=== PATIENT | female | born 1945 | race Caucasian/White ===

== ENCOUNTER → 2016-10-03 | Outpatient (CLI) | payer MEDICARE ==
[~2016-10-03] MED LIST: ACHD5005 PO; BILB80CA PO; CELE200C PO; CRAN200C PO; FLUO40CA12 PO; LISI10TA PO; MAGN250T35 PO; METO-351 PO; MULT-608 PO; OMEG-109 PO; RED600CA2 PO; RIVA20TA PO; SPIR25TA3 PO; TRAM50TA2 PO; UBID300C PO; VIT D3; VITA-189 PO; WRF5T PO
--- OUTSIDE RECORDS SUMMARY | 2016-10-03 10:52 | XMS REPORT | Continuity of Care Document ---
Author Author [facility] Organization [facility] Address Unknown Phone Unavailable Care Team Providers Care Certified Genetic Counselor Name Role Phone FANTA PATEL DO PCP Insurance Providers Payer Name Policy Number Subscriber Name Relationship Advantra Callao [id number] Kusum Sibley 18 Self / Same As Patient Advance Directives Directive Response Recorded Date/Time Advance Directives No 09/01/15 3:16pm Health Care Power of Baseball Glove Shaper No 09/01/15 3:16pm Organ Donor No 09/01/15 3:16pm Problems No problem information available. Medications Current Home Medications Medication Dose Units Route Directions Days/Qty Instructions Start Date Spironolactone 25 Mg 25 Mg Oral Daily 04/14/11 [Vit D3 ] 1,000 Units 07/14/15 Ubidecarenone 300 Mg 300 Mg Oral 07/14/15 Vitamin B Complex 1 Each 1 Each Oral 07/14/15 [place]-3 Fatty Acids/Fish Oil 1 Each 1 Each Oral 07/14/15 Red Yeast Rice 600 Mg 1,200 Mg Oral Daily 07/14/15 Bilberry Fruit Extract 80 Mg 80 Mg Oral Daily 07/14/15 Cranberry Extract 200 Mg 200 Mg Oral Daily 07/14/15 Magnesium Oxide 250 Mg 250 Mg Oral Daily 07/14/15 Metoprolol Succinate 25 Mg 25 Mg Oral Daily 07/14/15 Celecoxib 200 Mg 200 Mg Oral Daily 07/14/15 Fluoxetine Hcl 40 Mg 40 Mg Oral Daily 10/20/15 Tramadol Hcl 50 Mg 50 Mg Oral Daily 07/14/15 Rivaroxaban 20 Mg 20 Mg Oral Daily 07/14/15 Spironolactone 25 Mg 25 Mg Oral Daily 07/14/15 Past Home Medications Medication Directions Ordered Status Lisinopril (Zestril) 10 Mg Tablet, 1 Each Oral Daily 04/14/11 Discontinued Multivitamins 1 Tab Tablet, 1 Tab Oral Daily 04/14/11 Discontinued Warfarin Sodium 5 Mg Tab, 5 Mg Oral Daily@18 04/19/11 Discontinued Acetaminophen/Hydrocodone Bitart 1 Each Tablet, 1 - 2 Each Oral Every 6 Hours as needed 11/16/12 Discontinued Social History Social History Problem Response Recorded Date/Time Alcohol Use Denies Use 11/16/2012 4:06am Recreational Drug Use No 11/16/2012 4:06am Sexually Transmitted Disease No 11/16/2012 4:06am HIV/AIDS No 11/16/2012 4:06am Do you dip or chew tobacco? No 09/01/2015 3:15pm Sexually Transmitted Disease No 11/16/2012 4:06am Hospital Discharge Instructions No hospital discharge instructions. Plan of Care Prescriptions See Medication Section Functional Status No functional status results. Allergies, Adverse Reactions, Alerts Allergen Type Severity Reaction Status Last Updated tetracycline ([id number]) Allergy Unknown Active 07/14/15 Clindamycin Allergy Unknown Active 07/14/15 Immunizations No immunization records. Vital Signs No known vital signs results. Results No known relevant diagnostic tests, laboratory data and/or discharge summary. Procedures No known history of procedures. Encounters Encounter Location Arrival/Admit Date Discharge/Depart Date Attending Provider Discharged Recurring [facility] 04/27/16 11:51am 11:59pm QUYNH LANDEROS FACP, MD FACC
--- NOTE | 2016-10-03 16:11 | Diagnostic Imaging Report ---
PROCEDURE: US Thyroid. TECHNIQUE: Multiple real-time grayscale images were obtained of the thyroid in various projections. INDICATION: Bilateral thyroid nodule seen on outside carotid ultrasound. COMPARISON: No images are available for comparison. FINDINGS: Right thyroid lobe: The right thyroid lobe measures 5.1 x 1.8 x 1.5 cm It demonstrates a background of homogeneous echogenicity. There are multiple subcentimeter anechoic cysts present throughout the right thyroid lobe. In the upper pole of the right thyroid, there is a mixed solid and cystic nodule measuring 1.1 x 0.9 x 0.9 cm. Isthmus: The thyroid isthmus measures 0.3 cm in thickness and has a single anechoic subcentimeter cyst present. Left thyroid lobe: The left thyroid lobe measures 5.0 x 1.7 x 2.0 cm. There are numerous well-circumscribed subcentimeter cysts within the left thyroid lobe. There are additionally two dominant nodules within the upper pole of the left thyroid. The largest nodule measures 2.2 x 1.3 x 1.7 cm and is heterogeneously hypoechoic with solid components and a few intrinsic cystic foci. The other nodule is well-circumscribed and homogeneously hypoechoic measuring 1.5 x 0.8 x 1.1 cm. Extrinsic to the thyroid and located posterior to the inferior pole, there is a circumscribed markedly hypoechoic nodule measuring 1.1 x 1.1 x 1.3 cm. IMPRESSION: 1. Numerous bilateral thyroid cysts. There are additional mixed solid and cystic nodules in the upper pole of both thyroids. Dominant nodule on the left measures up to 2.2 cm. Given size greater than 2 cm, image guided FNA of this nodule is suggested. 2. There is a round hypoechoic nodule located posterior and extrinsic to the inferior left thyroid lobe. This may represent parathyroid adenoma. Correlation with serum calcium levels is recommended. If hypercalcemia is present, nuclear medicine parathyroid scan could be performed. Dictated by: Dictated on workstation # [id number]
== END ==
LOC: RAD 10:49
PROVIDERS: ATTEND Family Medicine
DX: E04.2 Nontoxic multinodular goiter (principal)
CPT/HCPCS: 76536

== ENCOUNTER → 2016-10-13 | Outpatient (CLI) | payer MEDICARE ==
[~2016-10-13] VITALS: Ht 165.1 cm; Wt 86.2 kg
[~2016-10-13] MED LIST changes: +LIDOCAINE 1% INJ 20 ML (XYLOCAINE) VIAL ONE
--- OUTSIDE RECORDS SUMMARY | 2016-10-13 12:45 | XMS REPORT | Continuity of Care Document ---
Author Author [facility] Organization [facility] Address Unknown Phone Unavailable Care Team Providers Care Bicycle Ii Assembler Name Role Phone FANTA PATEL DO PCP Insurance Providers Payer Name Policy Number Subscriber Name Relationship Advantra Uvalda [id number] Kusum Sibley 18 Self / Same As Patient Advance Directives Directive Response Recorded Date/Time Advance Directives No 09/01/15 3:16pm Health Care Power of Sheet Metal Worker Maintenance No 09/01/15 3:16pm Organ Donor No 09/01/15 3:16pm Problems No problem information available. Medications Current Home Medications Medication Dose Units Route Directions Days/Qty Instructions Start Date Spironolactone 25 Mg 25 Mg Oral Daily 04/14/11 [Vit D3 ] 1,000 Units 07/14/15 Ubidecarenone 300 Mg 300 Mg Oral 07/14/15 Vitamin B Complex 1 Each 1 Each Oral 07/14/15 [place]-3 Fatty Acids/Fish Oil 1 Each 1 Each [...] Type Severity Reaction Status Last Updated tetracycline ([id number]) Allergy Unknown Active 07/14/15 Clindamycin Allergy Unknown Active 07/14/15 Immunizations No immunization records. Vital Signs No known vital signs results. Results No known relevant diagnostic tests, laboratory data and/or discharge summary. Procedures No known history of procedures. Encounters Encounter Location Arrival/Admit Date Discharge/Depart Date Attending Provider Discharged Recurring [facility] 04/27/16 11:51am 11:59pm QUYNH LANDEROS FACP, MD FACC
--- NOTE | 2016-10-13 16:10 | Diagnostic Imaging Report ---
EXAMINATION: US-guided core biopsy-thyroid. INDICATION: Left thyroid nodule. Current history and physical and other medical records are reviewed prior to the procedure. CONSENT: Informed consent was obtained from the patient. The risks, benefits, potential complications and alternatives were reviewed and all questions answered to the patient's satisfaction. The patient's vital signs, cardiac rhythm, and pulse oximetry with observed throughout the procedure by qualified nursing personnel. Sedation/medications: none. FINDINGS: Left thyroid solid and cystic nodule about 2.2 CM in size. PROCEDURE: After maximal sterile barrier technique preparation and draping, 1% lidocaine was utilized for local anesthesia. With the patient in supine position, and via anterior approach, a 19-gauge guide needle is introduced into the left thyroid nodule under live ultrasound guidance. After confirming adequate positioning with saved ultrasound images, multiple 20 gauge core biopsy specimens were obtained. The patient tolerated the procedure well with no immediate complications. IMPRESSION: Successful US-guided core biopsy of left thyroid nodule. Dictated by: Dictated on workstation # [id number]
== END ==
LOC: RAD 12:42
PROVIDERS: ATTEND Family Medicine
DX: E04.1 Nontoxic single thyroid nodule (principal)
CPT/HCPCS: 76942

== ENCOUNTER 2017-02-07 13:24 | Outpatient (RCR) | payer MEDICARE ==
[~2017-02-07 13:24] MED LIST changes: -LIDOCAINE 1% INJ 20 ML (XYLOCAINE) VIAL ONE
== END 2017-02-22 08:53 | disposition home or self-care (01) ==
PROVIDERS: ATTEND Neurological Surgery
DX: M54.16 Radiculopathy, lumbar region (principal)

== ENCOUNTER → 2017-10-13 | Outpatient (CLI) | payer MEDICARE | LOC: CARD 09:33 | PROVIDERS: ATTEND Nurse Practitioner Family | DX: I35.0 Nonrheumatic aortic (valve) stenosis (principal); Z95.2 Presence of prosthetic heart valve; I25.10 Atherosclerotic heart disease of native coronary artery without angina pectoris; I65.23 Occlusion and stenosis of bilateral carotid arteries | CPT/HCPCS: 93306 ==

== ENCOUNTER → 2019-03-25 | Outpatient (CLI) | payer MEDICARE ==
[~2019-03-25] MED LIST changes: -RIVA20TA PO; +RIVA20TA2 PO; +SPIR25TA5 PO
--- NOTE | 2019-03-25 10:16 | Diagnostic Imaging Report ---
PROCEDURE: US Thyroid. TECHNIQUE: Multiple real-time grayscale images were obtained of the thyroid in various projections. INDICATION: Thyroid nodules. Comparison is made with prior examination from 10/03/2016. FINDINGS: Right lobe of the thyroid measures 5.2 x 1.7 x 2.5 cm. There is a hypoechoic nodule measuring 1.4 x 1.1 cm. There is a heterogeneous nodule measuring 1.1 cm. The left lobe of the thyroid measures 4.7 x 1.8 x 2.1 cm. There is an isoechoic nodule on the left measuring 2 x 1 cm. There is a hypoechoic nodule measuring 1.2 x 1.1 cm. IMPRESSION: Relatively stable bilateral thyroid nodules, likely multinodular goiter. The 2 cm nodule on the left has been previously biopsied. Dictated by: Dictated on workstation # [id number]
== END ==
LOC: RAD 08:07
PROVIDERS: ATTEND Family Medicine
DX: E04.2 Nontoxic multinodular goiter (principal)
CPT/HCPCS: 76536

== ENCOUNTER → 2021-06-16 | Outpatient (CLI) | payer MEDICARE ==
[~2021-06-16] MED LIST changes: -TRAM50TA2 PO; +TRM50T PO
== END ==
LOC: CARD 10:11
PROVIDERS: ATTEND Nurse Practitioner Family
DX: I07.1 Rheumatic tricuspid insufficiency (principal); Z98.890 Other specified postprocedural states; Z95.2 Presence of prosthetic heart valve
CPT/HCPCS: 93306

== ENCOUNTER → 2022-04-20 | Outpatient (CLI) | payer MEDICARE ==
[~2022-04-20] MED LIST changes: +RT-ALBUTEROL SULF 2.5 MG/3 ML PRE-MIX VIAL INH ONE
== END ==
LOC: RT 10:40
PROVIDERS: ATTEND Family Medicine
DX: R06.00 Dyspnea, unspecified (principal); R05.9 Cough, unspecified
CPT/HCPCS: 94060; 94726; 94729

== ENCOUNTER 2022-04-26 10:37 | Emergency (ER) | payer MEDICARE ==
[~2022-04-26 10:37] MED LIST changes: -RT-ALBUTEROL SULF 2.5 MG/3 ML PRE-MIX VIAL INH ONE
--- NOTE | 2022-04-26 11:13 | ED Cough/URI ---
General Chief Complaint: COVID19 Suspect/Confirmed Stated Complaint: FEVER - COUGH - BODY ACHES - CONGESTION Source: patient Exam Limitations: no limitations History of Present Illness Date Seen by Provider: Apr 26, 2022 Time Seen by Provider: 11:10 Initial Comments Patient is a 76-year-old female with aortic stenosis who presents ED with flulike symptoms. Symptoms started yesterday. She states she had a fever as high as 101.7. She took Tylenol. She states that she is sore all over with body aches and a cough. Initially states she was producing sputum and then states its more of a dry cough with scratchy throat. Denies of any nausea, vomiting, diarrhea, chest pain, abdominal pain. Patient is slow to respond to questions. Patient's oxygen level was around 93 to 94%. She states she had a recent pulmonary function test prescribed by her primary care physician. No history of COPD, asthma or heart disease that she knows of Allergies and Home Medications Allergies Coded Allergies: clindamycin (Verified Allergy, Unknown, 07/14/15) tetracycline (Verified Allergy, Unknown, 07/14/15) Patient Home Medication List Home Medication List Reviewed: Yes Bilberry Fruit Extract (Bilberry) 80 Mg Capsule, 80 MG PO DAILY, (Reported) Entered as Reported by: ODILON YBARRA on 07/14/15751 Celecoxib (Celebrex) 200 Mg Capsule, 200 MG PO DAILY, (Reported) Entered as Reported by: ODILON YBARRA on 07/14/15751 Cranberry Extract (Cranberry) 200 Mg Capsule, 200 MG PO DAILY, (Reported) Entered as Reported by: ODILON YBARRA on 07/14/15751 Fluoxetine HCl (Prozac) 40 Mg Capsule, 40 MG PO DAILY, (Reported) Entered as Reported by: ODILON YBARRA on 07/14/15751 Magnesium Oxide (Magnesium Oxide) 250 Mg Tablet, 250 MG PO DAILY, (Reported) Entered as Reported by: ODILON YBARRA on 07/14/15751 Metoprolol Succinate (Toprol Xl) 25 Mg Tab.er.24h, 25 MG PO DAILY, (Reported) Entered as Reported by: ODILON YBARRA on 07/14/15751 Nirmatrelvir/Ritonavir (Paxlovid 150-100 mg Pack (Eua)) 150 Mg-100 Mg Tablet, 1 EACH PO BID Prescribed by: TEOFILO LUNA on 04/26/22 1330 [place]-3 Fatty Acids/Fish Oil (Fish Oil 1,200 mg Softgel) 1 Each Capsule, 1 EACH PO, (Reported) Entered as Reported by: ODILON YBARRA on 07/14/15751 Red Yeast Rice (Red Yeast Rice) 600 Mg Capsule, 1,200 MG PO DAILY, (Reported) Entered as Reported by: ODILON YBARRA on 07/14/15751 Rivaroxaban (Xarelto Tablet) 20 Mg Tablet, 20 MG PO DAILY, (Reported) Entered as Reported by: ODILON YBARRA on 07/14/15751 Spironolactone (Spironolactone) 25 Mg Tablet, 25 MG PO DAILY, (Reported) Entered as Reported by: RUIZ BROWN on 04/14/11 1447 Spironolactone (Spironolactone) 25 Mg Tablet, 25 MG PO DAILY, (Reported) Entered as Reported by: ODILON YBARRA on 07/14/15751 Tramadol HCl (Tramadol HCl) 50 Mg Tablet, 50 MG PO DAILY, (Reported) Entered as Reported by: ODILON YBARRA on 07/14/15751 Ubidecarenone (Co Q-10) 300 Mg Capsule, 300 MG PO, (Reported) Entered as Reported by: ODILON YBARRA on 07/14/15751 Vitamin B Complex (B Complex) 1 Each Tablet, 1 EACH PO, (Reported) Entered as Reported by: ODILON YBARRA on 07/14/15751 [Vit D3 ] , 1,000 UNITS, (Reported) Entered as Reported by: ODILON YBARRA on 07/14/15751 Review of Systems Review of Systems Constitutional: chills; No diaphoresis; malaise, weakness EENTM: No ear pain, No blurred vision, No double vision Respiratory: cough, short of breath Cardiovascular: No chest pain Gastrointestinal: No abdominal pain, No diarrhea, No nausea, No vomiting Genitourinary: No decreased output, No discharge Musculoskeletal: No back pain, No joint pain Skin: No change in color, No change in hair/nails All Other Systems Reviewed Negative Unless Noted: Yes Past Xrliawe-Acwbnd-Iludfu Hx Immunizations Up To Date Tetanus Booster (TDap): Unknown Past Medical History Reproductive Disorders: No Sexually Transmitted Disease: No HIV/AIDS: No Adverse Reaction/Blood Tranf: No Physical Exam Vital Signs - First Documented 04/26/22 10:57 Temp 38.7 Pulse 85 Resp 18 B/P (MAP) 148/59 (88) Capillary Refill : Height: 5'5.00" Weight: 190lbs. 0.0oz. 86.493150ao; 31.6 BMI Method:Estimated General Appearance: WD/WN, no apparent distress Eyes: Bilateral Eye Normal Inspection, Bilateral Eye PERRL, Bilateral Eye EOMI HEENT: PERRL/EOMI, normal ENT inspection, TMs normal, pharynx normal Neck: non-tender, full range of motion, supple, normal inspection Respiratory: chest non-tender, lungs clear, normal breath sounds, no respiratory distress, no accessory muscle use Cardiovascular: regular rate, rhythm, no edema, no gallop, no JVD Gastrointestinal: normal bowel sounds, non tender, soft Extremities: normal range of motion, non-tender, normal inspection, no pedal edema, no calf tenderness Neurologic/Psychiatric: packaging operator II-XII nml as tested, no motor/sensory deficits, alert, normal mood/affect, oriented x 3 Skin: normal color, warm/dry Progress/Results/Core Measures Suspected Sepsis SIRS Temperature: Pulse: Respiratory Rate: Laboratory Tests 04/26/22 11:41: White Blood Count 8.2 Blood Pressure / Mean: Laboratory Tests 04/26/22 11:41: Creatinine 0.85, Platelet Count 162, Total Bilirubin 0.9 Results/Orders Lab Results Laboratory Tests Test 04/26/22 11:00 04/26/22 11:41 Range/Units Influenza Type A (RT-PCR) Not Detected Not Detecte Influenza Type B (RT-PCR) Not Detected Not Detecte SARS-CoV-2 RNA (RT-PCR) Detected H Not Detecte White Blood Count 8.2 4.3-11.0 10^3/uL Red Blood Count 4.73 3.80-5.11 10^6/uL Hemoglobin 14.6 11.5-16.0 g/dL Hematocrit 45 35-52 % Mean Corpuscular Volume 94 80-99 fL Mean Corpuscular Hemoglobin 31 25-34 pg Mean Corpuscular Hemoglobin Concent 33 32-36 g/dL Red Cell Distribution Width 12.6 10.0-14.5 % Platelet Count 162 130-400 10^3/uL Mean Platelet Volume 11.4 9.0-12.2 fL Immature Granulocyte % (Auto) 0 % Neutrophils (%) (Auto) 78 H 42-75 % Lymphocytes (%) (Auto) 8 L 12-44 % Monocytes (%) (Auto) 12 0-12 % Eosinophils (%) (Auto) 1 0-10 % Basophils (%) (Auto) 0 0-10 % Neutrophils # (Auto) 6.4 1.8-7.8 10^3/uL Lymphocytes # (Auto) 0.7 L 1.0-4.0 10^3/uL Monocytes # (Auto) 1.0 0.0-1.0 10^3/uL Eosinophils # (Auto) 0.1 0.0-0.3 10^3/uL Basophils # (Auto) 0.0 0.0-0.1 10^3/uL Immature Granulocyte # (Auto) 0.0 0.0-0.1 10^3/uL D-Dimer 0.92 H 0.00-0.49 UG/ML Urine Color YELLOW Urine Clarity CLEAR Urine pH 7.5 5-9 Urine Specific [place] 1.015 L 1.016-1.022 Urine Protein NEGATIVE NEGATIVE Urine Glucose (UA) NEGATIVE NEGATIVE Urine Ketones TRACE H NEGATIVE Urine Nitrite NEGATIVE NEGATIVE Urine Bilirubin NEGATIVE NEGATIVE Urine Urobilinogen 0.2 < = 1.0 MG/DL Urine Leukocyte Esterase NEGATIVE NEGATIVE Urine RBC (Auto) NEGATIVE NEGATIVE Urine RBC NONE /HPF Urine WBC RARE /HPF Urine Squamous Epithelial Cells >50 H /HPF Urine Crystals NONE /LPF Urine Bacteria TRACE /HPF Urine Casts NONE /LPF Urine Mucus SMALL H /LPF Urine Culture Indicated NO Sodium Level 139 135-145 MMOL/L Potassium Level 4.2 3.6-5.0 MMOL/L Chloride Level 105 98-107 MMOL/L Carbon Dioxide Level 24 21-32 MMOL/L Anion Gap 10 5-14 MMOL/L Blood Urea Nitrogen 12 7-18 MG/DL Creatinine 0.85 0.60-1.30 MG/DL Estimat Glomerular Filtration Rate 72 BUN/Creatinine Ratio 14 Glucose Level 104 70-105 MG/DL Calcium Level 9.2 8.5-10.1 MG/DL Corrected Calcium 9.3 8.5-10.1 MG/DL Total Bilirubin 0.9 0.1-1.0 MG/DL Aspartate Amino Transf (AST/SGOT) 23 5-34 U/L Alanine Aminotransferase (ALT/SGPT) 20 0-55 U/L Alkaline Phosphatase 79 40-136 U/L Troponin I < 0.028 <0.028 NG/ML B-Type Natriuretic Peptide 146.9 H <100.0 PG/ML Total Protein 6.5 6.4-8.2 GM/DL Albumin 3.9 3.2-4.5 GM/DL My Orders Orders - HUMPHREY SEBASTIAN Covid 19 Inhouse Test (04/26/22 10:57) Influenza A And B By Pcr (04/26/22 10:57) Cbc With Automated Diff (04/26/22 11:13) Comprehensive Metabolic Panel (04/26/22 11:13) Urinalysis (04/26/22 11:13) Chest 1 View, Ap/Pa Only (04/26/22 11:13) Iv/Invasive Line Insertion .IV start (04/26/22 11:13) Acetaminophen Tablet (Tylenol Tablet) (04/26/22 11:15) Troponin I [place] (04/26/22 11:13) Bnp [place] (04/26/22 11:13) Ekg Tracing (04/26/22 11:13) Fibrin Degradation Products (04/26/22 11:40) Ct Angio Chest W (04/26/22 12:30) Medications Given in ED Current Medications Medications Dose Ordered Sig/Yeison Route Start Time Stop Time Status Last Admin Dose Admin Acetaminophen 1,000 mg ONCE ONCE PO 04/26/22 11:15 04/26/22 11:16 DC 04/26/22 11:23 1,000 MG Iohexol 75 ml ONCE ONCE IV 04/26/22 13:15 04/26/22 13:18 DC 04/26/22 13:12 75 ML Sodium Chloride 100 ml ONCE ONCE IV 04/26/22 13:15 04/26/22 13:18 DC 04/26/22 13:12 100 ML Vital Signs/I&O 04/26/22 04/26/22 10:57 13:46 Temp 38.7 38.7 Pulse 85 84 Resp 18 18 B/P (MAP) 148/59 (88) 148/59 Capillary Refill : ECG Comment Sinus rhythm, low QRS voltage in pericardial leads, incomplete right bundle branch block, 71 bpm, QRS duration 99 MS, QTc 366 MS Departure Communication (PCP) Patient is a 76-year-old female who per ED with flulike symptoms that started yesterday. Dry cough, headache body aches soreness. Patient oxygen level 93 to 94% on room air. Denies history of COPD or known coronary artery disease. Had a outpatient echo in the past with mild aortic stenosis. She is currently on Eliquis with a history of blood disorder and PE. She had a recent pulmonary function test that was concern for PE versus severe anemia. This was performed April 20 here at our hospital. She denies of any current statins. EKG showed sinus rhythm at 71 bpm. No respiratory distress. Chest x-ray was unremarkable. Lab work was otherwise unremarkable with a slight elevated D-dimer. CT angio of the chest was negative for PE. Patient is a candidate for antiviral. Discussed PAxolvid and potential side effects. She agrees to move forward. Discussed decreasing her Eliquis and half twice a day 2.5 mg because of her strong history of PE. She is not currently on a statin. No contradictions with her blood pressure medication. Discussed monitor oxygen level at home with pulse ox. If any worsening symptoms such as shortness of breath, chest pain to return back to ED for further evaluation. Impression Primary Impression: COVID-19 Disposition: 01 HOME, SELF-CARE Condition: Stable Departure-Patient Inst. Decision time for Depature: 13:29 Referrals: FANTA PATEL DO (PCP/Family) Primary Care Physician Patient Instructions: COVID-19 (DC) Scripts Nirmatrelvir/Ritonavir (Paxlovid 150-100 mg Pack (Eua)) 150 Mg-100 Mg Tablet 1 EACH PO BID for 5 Days, #10 TAB Prov: HUMPHREY SEBASTIAN 04/26/22 HUMPHREY SEBASTIAN Apr 26, 2022 11:13
[2022-04-26] MEDS ORDERED: ACETAMINOPHEN 500 MG TAB (TYLENOL) PO ONE (11:15)
[2022-04-26 11:53] LABS: BASOPHILS % (AUTO) 0 % (0-10); EOSINOPHILS # (AUTO) 0.1 10^3/uL (0.0-0.3); EOSINOPHILS % (AUTO) 1 % (0-10); HEMATOCRIT 45 % (35-52); HEMOGLOBIN 14.6 g/dL (11.5-16.0); LYMPHOCYTES # (AUTO) 0.7 10^3/uL (1.0-4.0); LYMPHOCYTES % (AUTO) 8 % (12-44); MEAN CORPUSCULAR HEMOGLOBIN 31 pg (25-34); MEAN CORPUSCULAR HGB CONC 33 g/dL (32-36); MEAN CORPUSCULAR VOLUME 94 fL (80-99); MEAN PLATELET VOLUME 11.4 fL (9.0-12.2); MONOCYTES % (AUTO) 12 % (0-12); NEUTROPHILS # (AUTO) 6.4 10^3/uL (1.8-7.8); NEUTROPHILS % (AUTO) 78 % (42-75); PLATELET COUNT 162 10^3/uL (130-400); WHITE BLOOD COUNT 8.2 10^3/uL (4.3-11.0)
--- NOTE | 2022-04-26 12:01 | Diagnostic Imaging Report ---
Indication: Clinical suspicion for COVID pneumonia. Findings: No focal consolidation is found. Lung evaluation limited by body habitus. No acute infiltrate apparent. There is no effusion, pneumothorax or failure pattern. Impression: No acute abnormality radiographically apparent. Dictated by: Dictated on workstation # [id number]
[2022-04-26 12:12] LABS: COLOR,URINE YELLOW
[2022-04-26 12:13] LABS: BACTERIA,URINE TRACE /HPF; BILIRUBIN,URINE NEGATIVE (NEGATIVE); CLARITY,URINE CLEAR; GLUCOSE, URINE (UA) NEGATIVE (NEGATIVE); KETONES,URINE TRACE (NEGATIVE); LEUKOCYTE ESTERASE ,URINE NEGATIVE (NEGATIVE); NITRITE,URINE NEGATIVE (NEGATIVE); PH,URINE 7.5 (5-9); PROTEIN,URINE NEGATIVE (NEGATIVE); WBC,URINE RARE /HPF
[2022-04-26 12:14] LABS: SQUAMOUS EPITHELIAL CELL,UR >50 /HPF
[2022-04-26 12:23] LABS: ALANINE AMINOTRANSFERASE 20 U/L (0-55); ALBUMIN 3.9 GM/DL (3.2-4.5); ALKALINE PHOSPHATASE 79 U/L (40-136); BILIRUBIN,TOTAL 0.9 MG/DL (0.1-1.0); BUN/CREATININE RATIO 14; CALCIUM 9.2 MG/DL (8.5-10.1); CARBON DIOXIDE 24 MMOL/L (21-32); CHLORIDE 105 MMOL/L (98-107); CREATININE SERUM 0.85 MG/DL (0.60-1.30); GFR ESTIMATED 72; GLUCOSE 104 MG/DL (70-105); POTASSIUM 4.2 MMOL/L (3.6-5.0); SODIUM 139 MMOL/L (135-145); TOTAL PROTEIN 6.5 GM/DL (6.4-8.2)
[2022-04-26] MEDS ORDERED: NS 100 ML (IVPB) BAG IV ONE (13:15)
[2022-04-26] MEDS ORDERED: IOHEXOL 350 MG/ML 100 ML (OMNIPAQUE 350) VIAL IV ONE (13:15)
[2022-04-26] MEDS ORDERED: HOLD METFORMIN - RECEIVED CONTRAST 20 ML VIAL IV SCH (13:15)
--- NOTE | 2022-04-26 13:21 | Diagnostic Imaging Report ---
EXAMINATION: CT angiography of the chest. TECHNIQUE: Contrast enhanced thin section helical images were obtained through the chest with intravenous contrast timed for the optimal opacification of the arterial structures per CTA protocol. Post-processing, reconstructions and interpretation of angiographic images of the vessels was performed. 3D MIP reconstructions were performed and reviewed. All CT scans use one or more of the following dose optimizing techniques: Automated exposure control, MA and/or KvP adjustment based on a patient size and exam type, or iterative reconstruction. HISTORY: Dyspnea, chest tightness. COMPARISON: 09/22/2015. FINDINGS: Vascular: No filling defects within the pulmonary arteries. Thoracic aorta is normal in caliber. Calcification of the aorta and coronary vessels. Thyroid: The thyroid is normal. Mediastinum: Heart size is normal without significant pericardial effusion. No suspicious lymphadenopathy. Lungs and airways: The lungs are clear without consolidation, pleural effusion, or pneumothorax. No suspicious pulmonary lesion. There is atelectasis within the dependent lungs. The airways are normal. Upper abdomen: Gallbladder is surgically absent. Musculoskeletal: Degenerative changes of the spine without suspicious osseous lesion or compression fracture. Surgical changes from median sternotomy. IMPRESSION: 1. No findings of pulmonary embolus or other acute abnormality in the chest. Dictated by: Dictated on workstation # [id number]
[2022-04-26] MEDS ORDERED: NIRM1TAB5 PO (13:30)
[2022-04-26 13:46] VITALS: BP 148/59
== END 2022-04-26 13:56 | disposition home or self-care (01) ==
LOC: EDUNIT# 10:37 → ER 10:39
DX: U07.1 COVID-19 (principal); I45.10 Unspecified right bundle-branch block; Z86.2 Personal history of diseases of the blood and blood-forming organs and certain disorders involving the immune mechanism; Z86.711 Personal history of pulmonary embolism; Z79.01 Long term (current) use of anticoagulants
CPT/HCPCS: 36415; 71045; 71275; 80053; 81000; 83880; 84484; 85025; 85379; 87636; 93005

== ENCOUNTER → 2022-05-12 | Outpatient (CLI) | payer MEDICARE ==
[~2022-05-12] MED LIST changes: +NIRM1TAB5 PO
--- NOTE | 2022-05-12 17:52 | Diagnostic Imaging Report ---
CT Chest w/o contrast. TECHNIQUE: Multiple contiguous axial images were obtained through the chest without the use of intravenous contrast. All CT scans use one or more of the following dose optimizing techniques: automated exposure control, MA and/or KvP adjustment based on patient size and exam type or iterative reconstruction. INDICATION: Shortness of air, nocturnal hypoxia. COMPARISON: CTA chest from 04/26/2022. FINDINGS: Lungs and airway: No abnormality of the trachea. The lungs are clear. No pneumonia or edema. There are no suspicious pulmonary nodules. Linear atelectasis within the right middle lobe. No bronchiectasis or honeycombing. Pleura: No pleural effusion or pneumothorax. Heart and mediastinum: No mediastinal or hilar lymphadenopathy. No supraclavicular or axillary lymphadenopathy. Status post aortic valve replacement. No pericardial effusion. Severe coronary artery calcifications. Normal caliber thoracic aorta. Upper abdomen: No concerning abnormality in the upper abdomen. Diffuse hypoattenuation of the liver is most indicative of hepatic steatosis. Stable low-attenuation left adrenal nodule indicative of benign adenoma. Musculoskeletal: No concerning focal osseous lesions. Prior sternotomy. IMPRESSION: 1. No acute pulmonary abnormality. 2. No interstitial lung disease. 3. Diffuse hepatic steatosis. Dictated by: Dictated on workstation # [id number]
== END ==
LOC: RAD 11:51
PROVIDERS: ATTEND Family Medicine
DX: K76.0 Fatty (change of) liver, not elsewhere classified (principal); R06.02 Shortness of breath; R09.02 Hypoxemia
CPT/HCPCS: 71250

== ENCOUNTER 2022-06-13 09:05 | Emergency (ER) | payer MEDICARE ==
[~2022-06-13] VITALS: Ht 160 cm; Wt 84.0 kg
[2022-06-13] MEDS ORDERED: NS IV 1000 ML 1,000 ML IV SCH (09:30)
[2022-06-13] MEDS ORDERED: cefTRIAXone 1 GM PRE-MIX 50 ML IV ONE (09:30)
[2022-06-13] MEDS ORDERED: ACETAMINOPHEN 500 MG TAB (TYLENOL) PO PRN (09:30)
[2022-06-13] MEDS ORDERED: NS IV 500 ML 500 ML IV ONE (09:30)
[2022-06-13] MEDS ORDERED: RT-ALBUTEROL/IPRATROPIUM 3 ML (DUONEB) VIAL INH ONE (09:30)
[2022-06-13] MEDS ORDERED: AZITHROMYCIN INJECTION 500 MG in NS (IVPB) 250 ML IV ONE (09:30)
--- NOTE | 2022-06-13 09:33 | ED Cough/URI ---
General Stated Complaint: FEVER, HEADACHE, COUGH Source: patient Exam Limitations: no limitations History of Present Illness Date Seen by Provider: Jun 13, 2022 Time Seen by Provider: 09:12 Initial Comments Patient to the ER by private conveyance for chief complaint that since 2 weeks ago she is been experiencing nonproductive cough, progressive worsening shortness of air, body aches and fever T-max of 100-101. She wears oxygen to sleep at night. She feels breathless and has difficulty speaking in full sentences. She follows with Dr. Stevenson for primary care. She has an albuterol inhaler that she has been using with some minimal relief of symptoms. She was seen at urgent care on Monday and had labs. She did not get a chest x-ray done. She had a negative COVID and influenza swab from then. She was put on a medication that she does not know the name of. She is not on steroids Allergies and Home Medications Allergies Coded Allergies: clindamycin (Verified Allergy, Unknown, 07/14/15) tetracycline (Verified Allergy, Unknown, 07/14/15) Patient Home Medication List Home Medication List Reviewed: Yes Bilberry Fruit Extract (Bilberry) 80 Mg Capsule, 80 MG PO DAILY, (Reported) Entered as Reported by: ODILON YBARRA on 07/14/15751 Celecoxib (Celebrex) 200 Mg Capsule, 200 MG PO DAILY, (Reported) Entered as Reported by: ODILON YBARRA on 07/14/15751 Cranberry Extract (Cranberry) 200 Mg Capsule, 200 MG PO DAILY, (Reported) Entered as Reported by: ODILON YBARAR on 07/14/15751 Fluoxetine HCl (Prozac) 40 Mg Capsule, 40 MG PO DAILY, (Reported) Entered as Reported by: ODILON YBARRA on 07/14/15751 Magnesium Oxide (Magnesium Oxide) 250 Mg Tablet, 250 MG PO DAILY, (Reported) Entered as Reported by: ODILON YBARRA on 07/14/15751 Metoprolol Succinate (Toprol Xl) 25 Mg Tab.er.24h, 25 MG PO DAILY, (Reported) Entered as Reported by: ODILON YBARRA on 07/14/15751 Nirmatrelvir/Ritonavir (Paxlovid 150-100 mg Pack (Eua)) 150 Mg-100 Mg Tablet, 1 EACH PO BID Prescribed by: TEOFILO LUNA on 04/26/22 1330 [place]-3 Fatty Acids/Fish Oil (Fish Oil 1,200 mg Softgel) 1 Each Capsule, 1 EACH PO, (Reported) Entered as Reported by: ODILON YBARRA on 07/14/15751 Red Yeast Rice (Red Yeast Rice) 600 Mg Capsule, 1,200 MG PO DAILY, (Reported) Entered as Reported by: ODILON YBARRA on 07/14/15751 Rivaroxaban (Xarelto Tablet) 20 Mg Tablet, 20 MG PO DAILY, (Reported) Entered as Reported by: ODILON YBARRA on 07/14/15751 Spironolactone (Spironolactone) 25 Mg Tablet, 25 MG PO DAILY, (Reported) Entered as Reported by: RUIZ BROWN on 04/14/11 1447 Spironolactone (Spironolactone) 25 Mg Tablet, 25 MG PO DAILY, (Reported) Entered as Reported by: ODILON YBARRA on 07/14/15751 Tramadol HCl (Tramadol HCl) 50 Mg Tablet, 50 MG PO DAILY, (Reported) Entered as Reported by: ODILON YBARRA on 07/14/15751 Ubidecarenone (Co Q-10) 300 Mg Capsule, 300 MG PO, (Reported) Entered as Reported by: ODILON YBARRA on 07/14/15751 Vitamin B Complex (B Complex) 1 Each Tablet, 1 EACH PO, (Reported) Entered as Reported by: ODILON YBARRA on 07/14/15751 [Vit D3 ] , 1,000 UNITS, (Reported) Entered as Reported by: ODILON YBARRA on 07/14/15751 Review of Systems Review of Systems Constitutional: chills; No diaphoresis; fever, malaise EENTM: see HPI Respiratory: cough; No phlegm; short of breath, wheezing Cardiovascular: No chest pain, No Hx of Intervention, No palpitations Gastrointestinal: No abdominal pain, No nausea, No vomiting Genitourinary: No discharge, No dysuria Musculoskeletal: No back pain, No joint pain All Other Systems Reviewed Negative Unless Noted: Yes Past Atyioxj-Cghobq-Msryzw Hx Patient Social History Tobacco Use?: No Use of E-Cig and/or Vaping dev: No Immunizations Up To Date Tetanus Booster (TDap): Unknown First/Initial COVID19 Vaccinat: 2020 Second COVID19 Vaccination Mahendra: 2020 Third COVID19 Vaccination Date: 2021 Past Medical History Surgery/Hospitalization HX: PT COULD NOT RECALL ANY MEDICAL HX Reproductive Disorders: No Sexually Transmitted Disease: No HIV/AIDS: No Adverse Reaction/Blood Tranf: No Physical Exam Vital Signs - First Documented 06/13/22 06/13/22 09:10 09:55 Temp 37.8 Pulse 83 Resp 38 B/P (MAP) 143/73 (96) Pulse Ox 97 O2 Delivery Room Air Capillary Refill : Height: 5'5.00" Weight: 190lbs. 0.0oz. 86.395936fl; 31.6 BMI Method:Estimated General Appearance: WD/WN, mild distress Eyes: Bilateral Eye Normal Inspection, Bilateral Eye PERRL, Bilateral Eye EOMI HEENT: PERRL/EOMI, normal ENT inspection, TMs normal; No pharynx normal (Dry oral mucosa) Neck: full range of motion, supple, normal inspection Respiratory: no accessory muscle use, respiratory distress (Mild, breathless with sentences), wheezing Cardiovascular: normal peripheral pulses, regular rate, rhythm (Heart rate of 80) Gastrointestinal: normal bowel sounds, non tender Extremities: normal inspection, no pedal edema, normal capillary refill Neurologic/Psychiatric: alert, normal mood/affect, oriented x 3 Skin: normal color, warm/dry Progress/Results/Core Measures Suspected Sepsis SIRS Temperature: Pulse: Respiratory Rate: Laboratory Tests 06/13/22 09:55: White Blood Count 6.4 Blood Pressure / Mean: Laboratory Tests 06/13/22 09:55: Creatinine 0.97, INR Comment 1.2, Platelet Count 149, Total Bilirubin 0.7 Results/Orders Lab Results Laboratory Tests Test 06/13/22 09:55 06/13/22 09:56 Range/Units White Blood Count 6.4 4.3-11.0 10^3/uL Red Blood Count 4.86 3.80-5.11 10^6/uL Hemoglobin 15.2 11.5-16.0 g/dL Hematocrit 45 35-52 % Mean Corpuscular Volume 92 80-99 fL Mean Corpuscular Hemoglobin 31 25-34 pg Mean Corpuscular Hemoglobin Concent 34 32-36 g/dL Red Cell Distribution Width 13.0 10.0-14.5 % Platelet Count 149 130-400 10^3/uL Mean Platelet Volume 11.4 9.0-12.2 fL Immature Granulocyte % (Auto) 0 % Neutrophils (%) (Auto) 63 42-75 % Lymphocytes (%) (Auto) 13 12-44 % Monocytes (%) (Auto) 17 H 0-12 % Eosinophils (%) (Auto) 6 0-10 % Basophils (%) (Auto) 1 0-10 % Neutrophils # (Auto) 4.1 1.8-7.8 10^3/uL Lymphocytes # (Auto) 0.8 L 1.0-4.0 10^3/uL Monocytes # (Auto) 1.1 H 0.0-1.0 10^3/uL Eosinophils # (Auto) 0.4 H 0.0-0.3 10^3/uL Basophils # (Auto) 0.0 0.0-0.1 10^3/uL Immature Granulocyte # (Auto) 0.0 0.0-0.1 10^3/uL Prothrombin Time 16.1 H 12.2-14.7 SEC INR Comment 1.2 0.8-1.4 Activated Partial Thromboplast Time 34 24-35 SEC Sodium Level 139 135-145 MMOL/L Potassium Level 4.0 3.6-5.0 MMOL/L Chloride Level 105 98-107 MMOL/L Carbon Dioxide Level 20 L 21-32 MMOL/L Anion Gap 14 5-14 MMOL/L Blood Urea Nitrogen 15 7-18 MG/DL Creatinine 0.97 0.60-1.30 MG/DL Estimat Glomerular Filtration Rate 61 BUN/Creatinine Ratio 15 Glucose Level 115 H 70-105 MG/DL Calcium Level 9.1 8.5-10.1 MG/DL Corrected Calcium 9.3 8.5-10.1 MG/DL Total Bilirubin 0.7 0.1-1.0 MG/DL Aspartate Amino Transf (AST/SGOT) 27 5-34 U/L Alanine Aminotransferase (ALT/SGPT) 20 0-55 U/L Alkaline Phosphatase 77 40-136 U/L Total Protein 6.5 6.4-8.2 GM/DL Albumin 3.7 3.2-4.5 GM/DL Blood Gas Puncture Site L RAD Blood Gas Patient Temperature 37.8 Arterial Blood pH 7.52 H 7.37-7.43 Arterial Blood Partial Pressure CO2 24 L 35-45 MMHG Arterial Blood Partial Pressure O2 75 L 79-93 MMHG Arterial Blood HCO3 20 L 23-27 MMOL/L Arterial Blood Total CO2 20.2 L 21.0-31.0 MMOL/L Arterial Blood Oxygen Saturation 98 94-100 % Arterial Blood Base Excess -2.9 L -2.5-2.5 MMOL/L Steven Test YES-POS Blood Gas Ventilator Setting NO Blood Gas Inspired Oxygen ROOM AIR My Orders Orders - ROSS DAVIDSONid 19 Inhouse Test (06/13/22 09:10) Influenza A And B By Pcr (06/13/22 09:10) Cbc With Automated Diff (06/13/22:) Comprehensive Metabolic Panel (06/13/22) Blood Culture (06/13/22) Sputum Culture (06/13/22) Protime With Inr (06/13/22) Partial Thromboplastin Time (06/13/22:) Chest 1 View, Ap/Pa Only (06/13/22:) Acetaminophen Tablet (Tylenol Tablet) (06/13/22:30) Ed Iv/Invasive Line Start (06/13/22:) Ed Iv/Invasive Line Start (06/13/22:) Vital Signs Adult Sepsis Patie Q15M (06/13/22:) O2 (06/13/22:) Remove Rings In Anticipation O (06/13/22:) Ns Iv 1000 Ml (Sodium Chloride 0.9%) (06/13/22:30) Ceftriaxone 1 Gm Pre-Mix (Rocephin 1 Gm (06/13/22:30) Azithromycin Injection (Zithromax Inject (06/13/22:30) Ed Iv/Invasive Line Start (06/13/22:27) Ns Iv 500 Ml (Sodium Chloride 0.9%) (06/13/22:30) Arterial Blood Gas (06/13/22) Albuterol/Ipra Inhalation Soln (Duoneb I (06/13/22:30) Svn Small Volume Nebulizer (06/13/22:) Medications Given in ED Current Medications Medications Dose Ordered Sig/Yeison Route Start Time Stop Time Status Last Admin Dose Admin Acetaminophen 1,000 mg ONCE PRN PO 06/13/22 09:30 06/13/22 10:01 DC 06/13/22 09:59 1,000 MG Albuterol/ Ipratropium 3 ml ONCE ONCE INH 06/13/22 09:30 06/13/22 09:31 DC 06/13/22 09:55 3 ML Azithromycin 500 mg/Sodium Chloride 255 ml @ 250 mls/hr ONCE ONCE IV 06/13/22 09:30 06/13/22 10:31 DC 06/13/22 10:01 250 MLS/HR Ceftriaxone Sodium/Dextrose 50 ml @ 100 mls/hr ONCE ONCE IV 06/13/22 09:30 06/13/22 09:59 DC 06/13/22 10:00 100 MLS/HR Sodium Chloride 500 ml @ 0 mls/hr Q0M ONCE IV 06/13/22 09:30 06/13/22 09:31 DC 06/13/22 10:01 500 MLS/HR Vital Signs/I&O 06/13/22 06/13/22 09:10 09:55 Temp 37.8 Pulse 83 Resp 38 B/P (MAP) 143/73 (96) Pulse Ox 97 99 O2 Delivery Room Air Capillary Refill : Progress Note #1: Time: 12:23 Progress Note Aseptic vital signs except for respiratory rate. She is a little bit hypoxic on her ABG. She has access to oxygen at home and should be using it. ABG was obtained on room air. 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 Will financial services counselor recommendations for management and expectations. Progress Note #2: Progress Note Patient has some mild chronic hypoxia that have gotten a little worse post COVID. No signs of pneumonia. She is already on Levaquin from urgent care. Will encourage her to finish that out. She is urinated several times after fluid bolus. She is up walking around and ready to go home. Diagnostic Imaging Diagonstic Imaging: Xray Plain Films/CT/US/NM/MRI: chest Comments [facility] [place] NAME: KUSUM MADRIGAL [facility] REC#: [id number] PT STATUS: REG ER : 1945 PHYSICIAN: ROSS DAVIDSON MD ADMIT DATE: 09/19/22/ER Draft Date of Exam:06/13/22 CHEST 1 VIEW, AP/PA ONLY Indication: Cough and dyspnea AP view of the chest is obtained. Comparison is made study of 04/26/2022 FINDINGS: Heart size and pulmonary vascularity are within normal limits, and the lungs are clear, bilaterally. IMPRESSION: Unremarkable chest. Dictated on workstation # [id number] Dict: 06/13/22 1006 Trans: 06/13/22 1008 [place] [id number] Interpreted by: KIET LAGOS MD Electronically signed by: Reviewed: Reviewed by Me Departure Impression Primary Impression: Post-COVID syndrome Additional Impression: Chronic respiratory failure with hypoxia Disposition: HOME, SELF-CARE Condition: Stable Departure-Patient Inst. Decision time for Depature: 13:12 Referrals: FANTA STEVENSON DO (PCP/Family) Primary Care Physician Patient Instructions: COVID-19 Overview Add. Discharge Instructions: Drink plenty of fluids, get rest but stay active around the house. Be having shortness of air then wear your oxygen even during the day 2 to 3 L by nasal cannula. Follow-up in 2 to 4 weeks with primary care for reexamination. Return to the ER for significantly worsening symptoms. ROSS DAVIDSON Jun 13, 2022 09:33
[2022-06-13 10:00] LABS: ABG BASE EXCESS -2.9 MMOL/L (-2.5-2.5); ABG OXYGEN SATURATION 98 % (94-100); ABG PCO2 24 MMHG (35-45); ABG PH 7.52 (7.37-7.43); ABG PO2 75 MMHG (79-93); ABG TCO2 20.2 MMOL/L (21.0-31.0)
[2022-06-13 10:03] LABS: ALLENS TEST YES-POS; INSPIRED O2 ROOM AIR; PATIENT TEMP 37.8; VENTILATOR NO
[2022-06-13 10:03] LABS: BASOPHILS % (AUTO) 1 % (0-10); EOSINOPHILS # (AUTO) 0.4 10^3/uL (0.0-0.3); EOSINOPHILS % (AUTO) 6 % (0-10); HEMATOCRIT 45 % (35-52); HEMOGLOBIN 15.2 g/dL (11.5-16.0); LYMPHOCYTES # (AUTO) 0.8 10^3/uL (1.0-4.0); LYMPHOCYTES % (AUTO) 13 % (12-44); MEAN CORPUSCULAR HEMOGLOBIN 31 pg (25-34); MEAN CORPUSCULAR HGB CONC 34 g/dL (32-36); MEAN CORPUSCULAR VOLUME 92 fL (80-99); MEAN PLATELET VOLUME 11.4 fL (9.0-12.2); MONOCYTES # (AUTO) 1.1 10^3/uL (0.0-1.0); MONOCYTES % (AUTO) 17 % (0-12); NEUTROPHILS # (AUTO) 4.1 10^3/uL (1.8-7.8); NEUTROPHILS % (AUTO) 63 % (42-75); PLATELET COUNT 149 10^3/uL (130-400); WHITE BLOOD COUNT 6.4 10^3/uL (4.3-11.0)
--- NOTE | 2022-06-13 10:09 | Diagnostic Imaging Report ---
Indication: Cough and dyspnea AP view of the chest is obtained. Comparison is made study of 04/26/2022 FINDINGS: Heart size and pulmonary vascularity are within normal limits, and the lungs are clear, bilaterally. IMPRESSION: Unremarkable chest. Dictated by: Dictated on workstation # [id number]
[2022-06-13 10:12] LABS: ALBUMIN 3.7 GM/DL (3.2-4.5)
[2022-06-13 10:14] LABS: CALCIUM 9.1 MG/DL (8.5-10.1)
[2022-06-13 10:15] LABS: TOTAL PROTEIN 6.5 GM/DL (6.4-8.2)
[2022-06-13 10:17] LABS: BILIRUBIN,TOTAL 0.7 MG/DL (0.1-1.0)
[2022-06-13 10:19] LABS: CREATININE SERUM 0.97 MG/DL (0.60-1.30)
[2022-06-13 11:24] LABS: INR 1.2 (0.8-1.4); PROTHROMBIN TIME PATIENT 16.1 SEC (12.2-14.7)
[2022-06-13 13:21] VITALS: BP 159/60
== END 2022-06-13 13:21 | disposition home or self-care (01) ==
LOC: EDUNIT# 09:05 → ER 09:08
DX: J96.11 Chronic respiratory failure with hypoxia (principal); U09.9 Post COVID-19 condition, unspecified
CPT/HCPCS: 36415; 71045; 80053; 82805; 85025; 85610; 85730; 87040; 94640